=== PATIENT | female | born 2000 ===

== ENCOUNTER 2022-06-14 19:56 | Emergency (ER) | payer OTHER ==
[~2022-06-14] VITALS: Ht 167.6 cm; Wt 59.0 kg
== END 2022-06-15 00:47 | disposition home or self-care (01) ==
LOC: ER 19:56
DX: S69.91XA Unspecified injury of right wrist, hand and finger(s), initial encounter (principal); W22.8XXA Striking against or struck by other objects, initial encounter; Y93.9 Activity, unspecified; Y92.9 Unspecified place or not applicable